=== PATIENT | female | born 1990 | race Caucasian/White ===

== ENCOUNTER 2017-01-07 18:40 | Emergency (ER) | payer SELFPAY ==
[~2017-01-07 18:40] MED LIST: BACTRIM DS TAB1 EAC2 PO; CATAFLAM50 MG PO; CLINDAMYCIN HC300 M2 PO; DOXYCYCLINE HY100 M3 PO; HYDROCODON-ACE1 EAC5 PO; KEFLEX500 M4 PO; LAMICTAL200 MG PO; MOTRIN600 MG PO; NO HOME MEDICATION XX; NORCO 5-325 TA1 EACH PO; NORCO 5/325 TAB1 TAB PO; NORCO 5/3251 TAB PO; PERCOCET 5/3251 TAB PO; VICODIN 5/500 T1 TAB PO
[2017-01-07] MEDS ORDERED: CLEOCIN HCL300 M1 PO (20:17)
== END 2017-01-07 21:11 ==
LOC: EDMED 18:40
DX: L02.413 Cutaneous abscess of right upper limb (principal)
CPT/HCPCS: J1885